=== PATIENT | male | born 1965 | race Caucasian/White ===

== ENCOUNTER 2016-09-22 18:00 | Inpatient (IN) | payer OTHER ==
[~2016-09-22] VITALS: Ht 190.5 cm; Wt 88.6 kg
[2016-09-22 19:16] LABS: PLATELET COUNT 305 x10^3mcL (130-400); RED CELL DISTRIBUTION WIDTH 13.3 % (11.5-14.5)
[2016-09-22 19:17] LABS: BASOPHIL % 0 % (0-2)
[2016-09-22 19:18] LABS: CALCIUM 9.4 mg/dL (8.5-10.1); CARBON DIOXIDE 23.6 mmol/L (21-32); CHLORIDE SERUM 100 mmol/L (98-107); CREATININE SERUM 0.9 mg/dL (0.7-1.3); GFR1 > 60 mL/min; GLUCOSE SERUM 113 mg/dL (74-106); POTASSIUM SERUM 4.4 mmol/L (3.5-5.1); SODIUM SERUM 136 mmol/L (136-145)
[2016-09-22 19:22] LABS: ALBUMIN 4.3 g/dL (3.4-5.0); ALKALINE PHOSPHATASE 68 U/L (46-116); ALT/SGPT 45 U/L (16-63); AMYLASE 45 U/L (25-115); AST/SGOT 33 U/L (15-37); BILIRUBIN TOTAL 0.92 mg/dL (0.20-1.00); LIPASE 176 IU/L (73-393); TOTAL PROTEIN, SERUM 8.1 g/dL (6.4-8.2)
[2016-09-22] MEDS ORDERED: ZESTRIL20 MG PO (21:41)
[2016-09-22 22:07] LABS: T3 TOTAL 1.17 ng/mL
[2016-09-22 22:12] LABS: CHOLESTEROL/HDL RATIO 3.9
[2016-09-22 22:14] VITALS: BP 138/75
[2016-09-22 22:18] VITALS: Ht 190.5 cm; Wt 88.6 kg
[2016-09-22 22:19] LABS: FREE T4 1.25 ng/dL (0.76-1.46); T4(THYROXINE) 7.6 ug/dL (4.7-13.3)
[2016-09-23 00:10] VITALS: BP 146/80
[2016-09-23 05:59] VITALS: BP 122/68
[2016-09-23 07:29] LABS: BASOPHIL % 0.4 % (0-2); PLATELET COUNT 244 x10^3mcL (130-400); RED CELL DISTRIBUTION WIDTH 13.4 % (11.5-14.5)
[2016-09-23 07:36] LABS: CALCIUM 8.2 mg/dL (8.5-10.1); CARBON DIOXIDE 24.9 mmol/L (21-32); CHLORIDE SERUM 105 mmol/L (98-107); GFR1 > 60 mL/min; GLUCOSE SERUM 105 mg/dL (74-106); MAGNESIUM 2.3 mg/dL (1.8-2.4); PHOSPHOROUS 4.4 mg/dL (2.5-4.9); POTASSIUM SERUM 3.9 mmol/L (3.5-5.1); SODIUM SERUM 140 mmol/L (136-145)
[2016-09-23 11:41] LABS: UA SPECIFIC GRAVITY 1.025 (1.005-1.035); microscopic required? YES; urine erythrocyte TRACE (NEGATIVE)
[2016-09-23 11:50] LABS: AMPHETAMINE QUAL UR NONE DETECTED (NEG <=1000)
[2016-09-23 14:23] VITALS: BP 135/68
[2016-09-23 18:01] VITALS: BP 139/77
[2016-09-23 21:49] VITALS: BP 160/84
[2016-09-24 00:10] VITALS: BP 140/68
[2016-09-24 05:00] VITALS: BP 150/78
[2016-09-24 05:38] VITALS: BP 155/87
[2016-09-24 06:02] LABS: BASOPHIL % 0.3 % (0-2); PLATELET COUNT 234 x10^3mcL (130-400); RED CELL DISTRIBUTION WIDTH 13.3 % (11.5-14.5)
[2016-09-24 06:26] LABS: CALCIUM 8.1 mg/dL (8.5-10.1); CARBON DIOXIDE 27.3 mmol/L (21-32); CHLORIDE SERUM 107 mmol/L (98-107); GFR1 > 60 mL/min; GLUCOSE SERUM 102 mg/dL (74-106); MAGNESIUM 2.2 mg/dL (1.8-2.4); PHOSPHOROUS 3.3 mg/dL (2.5-4.9); POTASSIUM SERUM 4.4 mmol/L (3.5-5.1); SODIUM SERUM 140 mmol/L (136-145)
[2016-09-24 08:38] VITALS: BP 147/79
[2016-09-24 13:08] VITALS: BP 143/80
[2016-09-24] MEDS ORDERED: BIA500 PO (13:28)
[2016-09-24] MEDS ORDERED: AMO500 PO (13:28)
[2016-09-24] MEDS ORDERED: LIPI10 PO (13:29)
[2016-09-24] MEDS ORDERED: PANTOPRAZOLE SO40 M1 PO (13:30)
[2016-09-24 14:16] VITALS: BP 143/80
== END 2016-09-24 14:57 | disposition home or self-care (01) | DRG 383 ==
LOC: ED 18:00 → DU 21:08
PROVIDERS: Emergency Medicine; Internal Medicine; ADMIT Family Medicine
PROC: 0DB68ZX Excision of Stomach, Via Natural or Artificial Opening Endoscopic, Diagnostic (ICD-10-PCS; principal; 2016-09-24 10:30)
DX: K25.3 Acute gastric ulcer without hemorrhage or perforation (principal); N17.0 Acute kidney failure with tubular necrosis; B96.81 Helicobacter pylori [H. pylori] as the cause of diseases classified elsewhere; K20.8 Other esophagitis; F10.20 Alcohol dependence, uncomplicated; I10 Essential (primary) hypertension; R73.03 Prediabetes; E78.5 Hyperlipidemia, unspecified; F12.10 Cannabis abuse, uncomplicated; Z72.0 Tobacco use; Z68.24 Body mass index [BMI] 24.0-24.9, adult
CPT/HCPCS: 43239; 80307; 82962; 83880; 84439; C9113; G0480; J1200; J1610; J1885; J2060; J2250; J2310; J2405; J2550; J3010; J3490; J7030; Q0092; Q9967

== ENCOUNTER 2018-10-17 10:32 | Emergency (ER) | payer OTHER ==
[~2018-10-17] VITALS: Ht 190.5 cm; Wt 88.9 kg
[~2018-10-17 10:32] MED LIST: AMO500 PO; BIA500 PO; LIPI10 PO; PANTOPRAZOLE SO40 M1 PO; ZESTRIL20 MG PO
[2018-10-17 10:37] VITALS: BP 152/96; Ht 190.5 cm; Wt 88.9 kg
== END 2018-10-17 11:15 | disposition home or self-care (01) ==
LOC: ED 10:32
DX: J02.9 Acute pharyngitis, unspecified (principal); I10 Essential (primary) hypertension; Z98.890 Other specified postprocedural states